=== PATIENT | male | born 1940 | race Caucasian/White ===

== ENCOUNTER 2020-08-07 19:18 | Emergency (ER) | payer OTHER ==
[~2020-08-07] VITALS: Ht 172.7 cm; Wt 93.0 kg
[2020-08-07] MEDS ORDERED: METFORMIN HCL500 M3 PO (19:31)
[2020-08-07] MEDS ORDERED: NF (19:32)
[2020-08-07 21:15] VITALS: BP 172/88
== END 2020-08-07 21:15 | disposition short-term general hospital (02) ==
LOC: ER 19:18
DX: S31.31XA Laceration without foreign body of scrotum and testes, initial encounter (principal); V98.8XXA Other specified transport accidents, initial encounter; Y93.89 Activity, other specified; Y92.413 State road as the place of occurrence of the external cause; Y99.9 Unspecified external cause status